=== PATIENT | male | born 1980 | race Caucasian/White ===

== ENCOUNTER 2022-05-26 13:46 | Emergency (ER) | payer SELFPAY ==
[2022-05-26 14:01] VITALS: BP 198/104; PULSE 78; RESP 20; TEMP 36.6; O2SAT 99; BMI 30.9
--- NOTE | 2022-05-26 14:17 | DI.RAD.S_ITS ---
PROCEDURE: XR CHEST 1V INDICATIONS: chest pain TECHNIQUE: One view of the chest was acquired. COMPARISON: None. FINDINGS: Surgical changes and devices: None. Lungs and pleura: Lungs are clear. No pleural effusions or pneumothorax. Mediastinum: Mediastinal contours appear normal. Heart size is normal. Bones and chest wall: No suspicious bony lesions. Overlying soft tissues appear unremarkable. IMPRESSION: No acute cardiopulmonary pathology. Dictated by: Sunday Cannon M.D. on 05/26/2022 at 14:33 Approved by: Sunday Cannon M.D. on 05/26/2022 at 14:33
[2022-05-26 14:33] VITALS: O2SAT 94
--- NOTE | 2022-05-26 14:33 | ED.CHESTPAIN ---
HPI - Chest Pain <Rodger Palomo PA-C - Last Filed: 05/26/22 18:53> General Chief Complaint: Chest Pain Stated Complaint: chest pains Time Seen by Provider: 05/26/22 14:12 Source: patient Limitations: no limitations History of Present Illness HPI narrative: This is a 42-year-old male reporting 2 weeks of intermittent chest pain with heart palpitations as well as mild shortness of breath. He did not have any injury area. Pain does not get worse with activity. Does not get worse with changes of position either. Patient states that he is no medical history as he ?does not go to the doctor?. Denies any fevers, chills, nausea, vomiting, abdominal pain, or any other concerning signs or symptoms. Related Data Home Medications Medication Instructions Recorded Confirmed esomeprazole magnesium 20 mg 20 mg PO DAILY 05/26/22 05/26/22 capsule,delayed release (Nexium) Previous Rx's Medication Instructions Recorded metoprolol succinate 25 mg capsule 25 mg PO BID 14 days #28 ea 05/26/22 sprinkle, ext. release 24 hr Allergies Allergy/AdvReac Type Severity Reaction Status Date / Time No Known Drug Allergies Allergy Verified 05/26/22 14:05 Review of Systems <Rodger Palomo PA-C - Last Filed: 05/26/22 18:53> Review of Systems Narrative: GENERAL: Denies chills, fatigue, malaise, fever, sweats. HEENT: Denies sinus pain, ear pain, sore throat, difficulty swallowing, dizziness. RESPIRATORY: Reports shortness of breath, denies cough, wheezing, hemoptysis, sputum. CARDIOVASCULAR: Reports chest pain, palpitations, denies orthopnea, edema, GASTROINTESTINAL: Denies nausea, vomiting, abdominal pain, diarrhea, constipation, melena. : Denies dysuria, frequency, incontinence, hematuria, urinary retention. MUSCULOSKELETAL: denies weakness, joint pain, or bony pain SKIN: Denies rash, skin lesions, or other NEUROLOGIC: Denies weakness, headache, numbness, change in speech, confusion, seizures, incoordination. PSYCHIATRIC: No concerning psychosocial issues. 12 point review of systems is negative except for those stated above Patient History <Rodger Palomo PA-C - Last Filed: 05/26/22 18:53> Social History Smoking Status: Current every day smoker Smoking Status: Current every day smoker tobacco type: vaping alcohol intake frequency: a few times a week Substance Use Type: marijuana Exam <JUAN Avila Last Filed: 05/26/22 18:53> Narrative Exam Narrative: GENERAL: Well-developed patient, in mild distress. HEAD: Atraumatic. Normocephalic. EYES: Pupils equal round and reactive. Extraocular motions intact. No scleral icterus. No injection or drainage. ENT: Nose without bleeding, purulent drainage. Throat without erythema, tonsillar hypertrophy or exudate. Airway patent. NECK: Trachea midline. Non tender CARDIOVASCULAR: Regular rate and rhythm without murmurs, gallops, or rubs. RESPIRATORY: Clear to auscultation. Breath sounds equal bilaterally. No wheezes, rales, or rhonchi. GASTROINTESTINAL: Abdomen soft, non-tender, nondistended. EXTREMITIES: No edema or joint tenderness. BACK: Nontender without deformity or crepitance. No flank tenderness. NEURO: AOx3. SKIN: No rash or erythema of visible areas Initial Vital Signs Initial Vital Signs: Vital Signs Temperature 97.9 F 05/26/22 14:01 Pulse Rate 78 05/26/22 14:01 Respiratory Rate 20 05/26/22 14:01 Blood Pressure 198/104 H 05/26/22 14:01 Pulse Oximetry 99 05/26/22 14:01 Oxygen Delivery Method 05/26/22 14:01 <Katy Odom DO - Last Filed: 05/27/22 07:16> Initial Vital Signs Initial Vital Signs: Vital Signs Temperature 97.9 F 05/26/22 14:01 Pulse Rate 78 05/26/22 14:01 Respiratory Rate 20 05/26/22 14:01 Blood Pressure 198/104 H 05/26/22 14:01 Pulse Oximetry 99 05/26/22 14:01 Oxygen Delivery Method 05/26/22 14:01 Course <Rodger Palomo PA-C - Last Filed: 05/26/22 18:53> Orders Ordered: ED Orders 05/26/22 14:07 EKG-12 Lead Routine 05/26/22 14:15 Complete Blood Count AUTO DIFF Stat Comprehensive Metabolic Panel Stat Lipase Stat Magnesium Stat Troponin & CK Cardiac Panel Stat 05/26/22 14:17 XR chest 1V Stat Vital Signs Vital signs: Vital Signs - 8 hr 05/26/22 14:01 05/26/22 14:33 05/26/22 14:34 Temperature 97.9 F Pulse Rate 78 Respiratory Rate 20 Blood Pressure 198/104 H 179/107 H Pulse Oximetry 99 94 Oxygen Delivery Method Room Air 05/26/22 14:34 05/26/22 15:00 05/26/22 15:00 Temperature Pulse Rate 92 H 81 Respiratory Rate 17 16 Blood Pressure 158/95 H Pulse Oximetry 97 97 Oxygen Delivery Method 05/26/22 15:30 05/26/22 15:30 05/26/22 16:00 Temperature Pulse Rate 80 Respiratory Rate 18 Blood Pressure 158/98 H 156/109 H Pulse Oximetry 94 Oxygen Delivery Method 05/26/22 16:00 Temperature Pulse Rate 65 Respiratory Rate 22 Blood Pressure Pulse Oximetry 94 Oxygen Delivery Method <Katy Odom DO - Last Filed: 05/27/22 07:16> Orders Ordered: ED Orders 05/26/22 14:07 EKG-12 Lead Routine 05/26/22 14:15 Complete Blood Count AUTO DIFF Stat Comprehensive Metabolic Panel Stat Lipase Stat Magnesium Stat Troponin & CK Cardiac Panel Stat 05/26/22 14:17 XR chest 1V Stat Vital Signs Vital signs: Vital Signs - 8 hr 05/26/22 14:01 05/26/22 14:33 05/26/22 14:34 Temperature 97.9 F Pulse Rate 78 Respiratory Rate 20 Blood Pressure 198/104 H 179/107 H Pulse Oximetry 99 94 Oxygen Delivery Method Room Air 05/26/22 14:34 05/26/22 15:00 05/26/22 15:00 Temperature Pulse Rate 92 H 81 Respiratory Rate 17 16 Blood Pressure 158/95 H Pulse Oximetry 97 97 Oxygen Delivery Method 05/26/22 15:30 05/26/22 15:30 05/26/22 16:00 Temperature Pulse Rate 80 Respiratory Rate 18 Blood Pressure 158/98 H 156/109 H Pulse Oximetry 94 Oxygen Delivery Method 05/26/22 16:00 Temperature Pulse Rate 65 Respiratory Rate 22 Blood Pressure Pulse Oximetry 94 Oxygen Delivery Method MDM - Chest Pain <Rodger Palomo PA-C - Last Filed: 05/26/22 18:53> Lab Data Result diagrams: 05/26/22 14:15 05/26/22 14:15 Labs: Lab Results 05/26/22 05/26/22 Range/Units 14:15 14:15 WBC 7.2 (4.5-11.0) X10^3/uL RBC 5.27 (4.5-5.9) X10^6/uL Hgb 15.6 (13.5-17.5) g/dL Hct 45.5 (41-53) % MCV 86.5 (80-100) fL MCH 29.6 (26-34) PG MCHC 34.2 (30-36) % RDW 13.7 (11.6-14.8) % Plt Count 191 (150-400) X10^3/uL Neut % (Auto) 65.2 (50-75) % Lymph % (Auto) 27.1 (25-40) % [place] % (Auto) 6.4 (3-14) % Eos % (Auto) 0.7 L (2-4) % Baso % (Auto) 0.6 (0-2) % Neut # (Auto) 4700 (2373-9262) /uL Lymph # (Auto) 2000 (4114-4485) /uL [place] # (Auto) 500 (0-900) /uL Eos # (Auto) 0 (0-450) /uL Baso # (Auto) 0 (0-100) /uL Sodium 141 (137-145) mmol/L Potassium 3.8 (3.4-5.1) mmol/L Chloride 100 (98-107) mmol/L Carbon Dioxide 30 (22-32) mmol/L BUN 13 (9-20) mg/dL Creatinine 0.85 (0.66-1.25) mg/dL Estimated GFR > 60 (>60) mL/min BUN/Creatinine Ratio 15.3 (6-22) Glucose 147 H (70-100) mg/dL Calcium 8.9 (8.4-10.2) mg/dL Magnesium 1.6 (1.6-2.3) mg/dL Total Bilirubin 0.9 (0.2-1.3) mg/dL AST 55 (17-59) IU/L ALT 65 H (<50) IU/L Alkaline Phosphatase 80 (38-126) U/L Total Creatine Kinase 228 H (55-170) U/L CK-MB (CK-2) 2.23 (<2.37) ng/mL CK-MB (CK-2) Rel Index 1.0 L (1.5-5.0) % Troponin I < 0.012 (0.01-0.034) ng/mL Total Protein 8.2 (6.3-8.2) g/dL Albumin 4.5 (3.5-5.0) g/dL Globulin 3.7 (1.7-4.1) g/dL Albumin/Globulin Ratio 1.2 (1.0-2.8) Lipase 224 (23-300) U/L Imaging Data Chest x-ray: Radiologist's Impression: [address] [address] XRay Report Signed Patient: Andrés Bailey MR#: [id number] : 1980 Acct:[id number] Age/Sex: 42 / M Date of Service: 05/26/22 Loc: ED Accession Number: [id number] ?? Procedure: XR chest 1V Ordering Provider: Katy Odom D.O. PROCEDURE:? XR CHEST 1V ? INDICATIONS:? chest pain ? TECHNIQUE:? One view of the chest was acquired.? ? COMPARISON:? None. ? FINDINGS:? ? Surgical changes and devices:? None.? ? Lungs and pleura:? Lungs are clear.? No pleural effusions or pneumothorax.? ? Mediastinum:? Mediastinal contours appear normal.? Heart size is normal.? ? Bones and chest wall:? No suspicious bony lesions.? Overlying soft tissues appear unremarkable.? ? IMPRESSION:? No acute cardiopulmonary pathology. ? ? Dictated by: Sunday Cannon M.D. on 05/26/2022 at 14:33 ? ? Approved by: Sunday Cannon M.D. on 05/26/2022 at 14:33 ? ECG Data Interpretation: EKG is normal sinus rhythm rate 84 and free of any signs of ischemia or ectopy. No ST segmental elevation or depression. No T wave inversions. Frequent PVCs as well as a right bundle-branch block MDM Narrative Medical decision making narrative: This is a 42-year-old male presenting due to 2 weeks of intermittent chest pain with palpitations. Troponin within normal limits and EKG showed no evidence of ischemia. EKG did show frequent PVCs as well as a right bundle-branch block. Chest x-ray unremarkable as well as other routine lab work. Due to patient being symptomatic will prescribe a short dose of metoprolol until patient is able to follow-up with cardiology for possible Holter monitor. Case discussed with my attending physician, Dr. Odom. <Katy Odom, - Last Filed: 05/27/22 07:16> Lab Data Labs: Lab Results 05/26/22 05/26/22 Range/Units 14:15 14:15 WBC 7.2 (4.5-11.0) X10^3/uL RBC 5.27 (4.5-5.9) X10^6/uL Hgb 15.6 (13.5-17.5) g/dL Hct 45.5 (41-53) % MCV 86.5 (80-100) fL MCH 29.6 (26-34) PG MCHC 34.2 (30-36) % RDW 13.7 (11.6-14.8) % Plt Count 191 (150-400) X10^3/uL Neut % (Auto) 65.2 (50-75) % Lymph % (Auto) 27.1 (25-40) % [place] % (Auto) 6.4 (3-14) % Eos % (Auto) 0.7 L (2-4) % Baso % (Auto) 0.6 (0-2) % Neut # (Auto) 4700 (7611-6970) /uL Lymph # (Auto) 2000 (2858-3422) /uL [place] # (Auto) 500 (0-900) /uL Eos # (Auto) 0 (0-450) /uL Baso # (Auto) 0 (0-100) /uL Sodium 141 (137-145) mmol/L Potassium 3.8 (3.4-5.1) mmol/L Chloride 100 (98-107) mmol/L Carbon Dioxide 30 (22-32) mmol/L BUN 13 (9-20) mg/dL Creatinine 0.85 (0.66-1.25) mg/dL Estimated GFR > 60 (>60) mL/min BUN/Creatinine Ratio 15.3 (6-22) Glucose 147 H (70-100) mg/dL Calcium 8.9 (8.4-10.2) mg/dL Magnesium 1.6 (1.6-2.3) mg/dL Total Bilirubin 0.9 (0.2-1.3) mg/dL AST 55 (17-59) IU/L ALT 65 H (<50) IU/L Alkaline Phosphatase 80 (38-126) U/L Total Creatine Kinase 228 H (55-170) U/L CK-MB (CK-2) 2.23 (<2.37) ng/mL CK-MB (CK-2) Rel Index 1.0 L (1.5-5.0) % Troponin I < 0.012 (0.01-0.034) ng/mL Total Protein 8.2 (6.3-8.2) g/dL Albumin 4.5 (3.5-5.0) g/dL Globulin 3.7 (1.7-4.1) g/dL Albumin/Globulin Ratio 1.2 (1.0-2.8) Lipase 224 (23-300) U/L ECG Data Interpretation: EKG is normal sinus rhythm rate 84 and free of any signs of ischemia or ectopy. No ST segmental elevation or depression. No T wave inversions. Frequent PVCs as well as a right bundle-branch block Lei-sinus rhythm rate 84 [place] interval 156 QRS is 156 QTC 489 frequent PVCs right bundle-branch block noted no priors to compare no ischemic changes Discharge Plan Departure Patient Disposition: Home Clinical Impression: Atypical chest pain Activity Restrictions/Additional Instructions: Thank you for coming to the [facility] Emergency Department today. The EKG and lab work showed that you are not having an acute heart attack but the EKG did show some slight abnormalities in your heart beat. Please take these heart medications until you are able follow-up with Dr. Espinosa for further investigation of these heart be abnormalities. Your chest x-ray was also unremarkable. I hope you feel better soon. Prescriptions: New metoprolol succinate 25 mg capsule,sprinkle,ER 24hr 25 mg PO BID 14 Days Qty: 28 0RF No Action esomeprazole magnesium [Nexium] 20 mg Capsule,Delayed Release(Dr/Ec) 20 mg PO DAILY Referrals: Antony Espinosa MD [Physician] - (f/u ED visit + EKG w/ frequent PVCs and RBBB ) Visit Report Forms: Patient Portal/API <Katy Odom DO - Last Filed: 05/27/22 07:16> Cosign ED Attending Cosignature Attestation: I was immediately available in the department for consultation. Documentation has been reviewed. I agree with assessment and plan. Patient is noted to have frequent PVCs on the monitor and is symptomatic. A trial of beta-shell upper
[2022-05-26 14:34] VITALS: BP 179/107; PULSE 92; RESP 17; O2SAT 97
[2022-05-26 14:37] LABS: Add Manual Diff / Slide Review NO; Basophils Absolute Auto 0 /uL (0-100); Basophils Percent Auto 0.6 % (0-2); Eosinophils Absolute Auto 0 /uL (0-450); Eosinophils Percent Auto 0.7 % (2-4); Hematocrit 45.5 % (41-53); Hemoglobin 15.6 g/dL (13.5-17.5); Lymphocytes Absolute Auto 2000 /uL (1100-4500); Lymphocytes Percent Auto 27.1 % (25-40); Mean Corpuscular HGB Conc 34.2 % (30-36); Mean Corpuscular Hemoglobin 29.6 PG (26-34); Mean Corpuscular Volume 86.5 fL (80-100); Monocytes Absolute Auto 500 /uL (0-900); Monocytes Percent Auto 6.4 % (3-14); Neutrophils Absolute Auto 4700 /uL (1500-7000); Neutrophils Percent Auto 65.2 % (50-75); Platelet Count 191 X10^3/uL (150-400); Red Blood Cell Count 5.27 X10^6/uL (4.5-5.9); Red Cell Distribution Width 13.7 % (11.6-14.8); White Blood Cell Count 7.2 X10^3/uL (4.5-11.0)
[2022-05-26 15:00] VITALS: BP 158/95; PULSE 81; RESP 16; O2SAT 97
[2022-05-26 15:17] LABS: Alanine Aminotransferase 65 IU/L (<50); Albumin 4.5 g/dL (3.5-5.0); Albumin Globulin Ratio 1.2 (1.0-2.8); Alkaline Phosphatase 80 U/L (38-126); Aspartate Aminotransferase 55 IU/L (17-59); BUN Creatinine Ratio 15.3 (6-22); Bilirubin Total 0.9 mg/dL (0.2-1.3); Blood Urea Nitrogen 13 mg/dL (9-20); Calcium 8.9 mg/dL (8.4-10.2); Carbon Dioxide 30 mmol/L (22-32); Chloride 100 mmol/L (98-107); Creatine Kinase 228 U/L (55-170); Estimated Glomerular Filt Rate > 60 mL/min (>60); Globulin 3.7 g/dL (1.7-4.1); Glucose 147 mg/dL (70-100); HEMOLYSIS < 15 (0-50); Lipase 224 U/L (23-300); Magnesium 1.6 mg/dL (1.6-2.3); Potassium 3.8 mmol/L (3.4-5.1); Sodium 141 mmol/L (137-145); Total Protein 8.2 g/dL (6.3-8.2)
[2022-05-26 15:29] LABS: Troponin I < 0.012 ng/mL (0.01-0.034)
[2022-05-26 15:30] VITALS: BP 158/98; PULSE 80; RESP 18; O2SAT 94
[2022-05-26 15:33] LABS: Creatine Kinase MB 2.23 ng/mL (<2.37)
[2022-05-26 16:00] VITALS: BP 156/109; PULSE 65; RESP 22; O2SAT 94
== END 2022-05-26 16:29 | disposition home or self-care (01) ==
PROVIDERS: Emergency Medicine; Emergency Provider Physician Assistant Medical
DX: R07.89 Other chest pain (principal); R00.2 Palpitations
CPT/HCPCS: 36415; 71045; 80053; 82550; 82553; 83690; 83735; 84484; 85025; 93005; 99283; 99284

== ENCOUNTER 2022-10-06 12:34 | Emergency (ER) | payer OTHER, MEDICAID, SELFPAY ==
[2022-10-06] VITALS (26 sets, daily range): BP systolic 129–181; BP diastolic 73–131; PULSE 63–113; RESP 11–23; TEMP 35.7–36.6; O2SAT 91–98
--- NOTE | 2022-10-06 12:35 | DI.CT.S_ITS ---
PROCEDURE: CT STROKE INDICATIONS: left sided weakness TECHNIQUE: Noncontrast 4.5 mm thick angled axial sections acquired from the foramen magnum to the vertex, with coronal reformats. For radiation dose reduction, the following was used: automated exposure control, adjustment of mA and/or kV according to patient size. COMPARISON: None. FINDINGS: Image quality: Excellent. CSF spaces: Basal cisterns are patent. No extra-axial fluid collections. Ventricles are normal in size and shape. Brain: No midline shift. No intracranial masses or hemorrhage. [place]-white matter interface is normal. Skull and face: Calvarium and visualized facial bones are intact, without suspicious lesions. Sinuses: Visualized sinuses and mastoids are clear. IMPRESSION: 1. No acute intracranial process. The above findings were discussed with Dr. Pallavi Gordillo on 10/06/2022 at 1:01 p.m. This study fulfills neurological imaging criteria for inclusion or exclusion of acute stroke therapies based on available published neurological imaging guidelines. Dictated by: Dulce Abbasi M.D. on 10/06/2022 at 13:01 Approved by: Dulce Abbasi M.D. on 10/06/2022 at 13:02
--- NOTE | 2022-10-06 12:35 | DI.CT.S_ITS ---
PROCEDURE: CT ANGIO HEAD AND NECK INDICATIONS: left sided weakness TECHNIQUE: After the administration of intravenous contrast, 1 mm thick sections acquired from the aortic arch through the [place]. Post-contrast 4.5 mm thick sections then re-acquired from the foramen magnum to the vertex. 3-dimensional fsvfzms-ziyveocsh-jgcbzqremw (MIP) and/or volume rendering reformats were acquired of the central intracranial vasculature and neck separately. For radiation dose reduction, the following was used: automated exposure control, adjustment of mA and/or kV according to patient size. COMPARISON: Merged With [facility], CT, CT STROKE, 10/06/2022, 12:32. FINDINGS: Image quality: Excellent. BRAIN: CSF spaces: Ventricles are normal in size and shape. Basal cisterns are patent. No extra-axial fluid collections. Brain: No midline shift. No intracranial bleeds or masses. [place]-white matter interface appears intact. Skull and face: Calvarium and facial bones appear intact, without suspicious lesions. Orbits appear normal. Sinuses: Sinuses and mastoids are clear. HEAD CT ANGIOGRAPHY: Anterior circulation: Intracranial internal carotid arteries are normal in size and flow. The flow within the paired anterior cerebral arteries is normal and symmetric. The flow within the middle cerebral arteries is normal and symmetric. The anterior communicating artery is seen. No aneurysms are seen. Posterior circulation: Mild left vertebral artery dominance. Visualized portions of the vertebral arteries demonstrate normal caliber, and join to form a normal appearing basilar artery. Flow within the posterior cerebral arteries is normal and symmetric. No aneurysms are seen. NECK CT ANGIOGRAPHY: Carotid system: The great vessels demonstrate a conventional anatomy as they arise from the aortic arch. The origins of the common carotid arteries appear patent. The common carotid arteries demonstrate normal caliber and courses. The bifurcation regions are both widely patent. The internal carotid arteries demonstrate normal calibers and courses. Posterior circulation: The origins of the vertebral arteries both appear widely patent. The more superior extracranial portions of both vertebral arteries also demonstrate normal courses and calibers. They join to form a normal appearing basilar artery. Soft tissues: Visualized neck soft tissues demonstrate no suspicious abnormalities. Bones: No suspicious bony lesions. Visualized cervical spine appears normally aligned. IMPRESSION: 1. No acute intracranial process. 2. No areas of hemodynamically significant stenosis, vascular occlusion or aneurysmal dilation within the anterior or posterior circulation. 3. No areas of hemodynamically significant stenosis, vascular occlusion or aneurysmal dilation within the neck vasculature. Any quantitative measurements of stenosis were performed using NASCET criteria. Dictated by: Dulce Abbasi M.D. on 10/06/2022 at 13:13 Approved by: Dulce Abbasi M.D. on 10/06/2022 at 13:14
[2022-10-06 13:01] LABS: Add Manual Diff / Slide Review NO; Basophils Absolute Auto 0 /uL (0-100); Basophils Percent Auto 0.5 % (0-2); Eosinophils Absolute Auto 0 /uL (0-450); Eosinophils Percent Auto 0.4 % (2-4); Hematocrit 44.7 % (41-53); Lymphocytes Absolute Auto 2000 /uL (1100-4500); Lymphocytes Percent Auto 40.2 % (25-40); Mean Corpuscular HGB Conc 33.5 % (30-36); Mean Corpuscular Hemoglobin 29.1 PG (26-34); Mean Corpuscular Volume 86.9 fL (80-100); Monocytes Absolute Auto 300 /uL (0-900); Monocytes Percent Auto 5.8 % (3-14); Neutrophils Absolute Auto 2700 /uL (1500-7000); Neutrophils Percent Auto 53.1 % (50-75); Platelet Count 211 X10^3/uL (150-400); Red Blood Cell Count 5.15 X10^6/uL (4.5-5.9); Red Cell Distribution Width 13.2 % (11.6-14.8); White Blood Cell Count 5.1 X10^3/uL (4.5-11.0)
--- NOTE | 2022-10-06 13:03 | ED.NEUROSD ---
HPI - Neuro Symptoms/Deficit General Chief Complaint: Neuro Symptoms/Deficit Stated Complaint: Stroke; L def, slurred speech, AMS Time Seen by Provider: 10/06/22 12:35 Source: patient Mode of arrival: EMS History of Present Illness HPI Narrative: This is a 42 year old male with history of GERD and ETOH use. Patient is on Nexium daily. He states he does drink alcohol most days. He did not he had anything to drink but he said he might have this morning. He states he does not normally have alcohol in the morning. Denies any prior surgeries. No known drug allergies. He states he smokes tobacco every day he vapes, states he does drink several times weekly. He uses marijuana he denies any injection or IV drugs. Patient states he is never had similar symptoms in the past. He describes some chest discomfort, he has quite a bit of pain where the Carter catheter was placed today. States his left side will not move. Initially he was unable to really articulate his words but this is improved during our evaluation. Patient does not recall the exact time but family last known normal was 11:30 a.m. with and a good friend named Sebastian and patient states this seems right. On Anticoagulants: No Related Data Home Medications Medication Instructions Recorded Confirmed esomeprazole magnesium 20 mg 20 mg PO DAILY 05/26/22 05/26/22 capsule,delayed release (Nexium) Allergies Allergy/AdvReac Type Severity Reaction Status Date / Time No Known Drug Allergies Allergy Verified 05/26/22 14:05 Review of Systems Review of Systems ROS Unobtainable: All systems reviewed & are unremarkable except as noted in HPI and below Hematologic/Lymphatic On Anticoagulants: No Patient History Social History Smoking Status: Current every day smoker Smoking Status: Current every day smoker tobacco type: vaping alcohol intake frequency: a few times a week Substance Use Type: marijuana Exam Narrative Exam Narrative: GEN: well nourished, well appearing male, alert and oriented, patient appears to be in moderate distress. HEENT: Atraumatic, pupils are equal round reactive to light, extraocular movements are intact, nares are clear.. Throat is clear without any exudates, erythema, tonsillar enlargement or uvular deviation, patient has clear droop of the left lower face with cheek puff and smile HEART: Regular rate and rhythm without murmur, clicks, rubs. No carotid bruits, pulses are equal in upper and lower extremities LUNGS:Lungs clear to auscultation, no wheezes, rales, crackles, chest moves symmetrically ABD:bowel sounds normal, soft, non-tender, no guarding, rebound, rigidity, no masses noted, no hepatosplenomegaly, no bruit or pulsatile mass. :No CVA tenderness, Carter catheter was placed in the department. Normal male genitalia. MSCL: Non-tender, no muscle atrophy, patient has normal straight leg on the right with arm and leg. Patient is unable to really lift the left arm off the bed he does attempt, patient's left leg has minimal to no movement with attempt. NEURO:CN 2-12 intact, sensation normal, patient unable to perform finger-nose or heel-gramajo with the left arm and leg. He can not feel sensation of touch in the left side of his leg has some sensation in the left arm but it does feel different. He feels that the cheeks are the same. Patient was quite dysarthric and aphasic initially there has been some improvement this become more articulate but does have to concentrate when performing NIH. Initial Vital Signs Initial Vital Signs: Vital Signs Temperature 96.3 F L 10/06/22 12:35 Pulse Rate 113 H 10/06/22 12:35 Respiratory Rate 18 10/06/22 12:35 Blood Pressure 175/97 H 10/06/22 12:35 Pulse Oximetry 94 10/06/22 12:35 Oxygen Delivery Method Room Air 10/06/22 12:35 Scores NIH Stroke Scale Level of Conciousness: Alert, keenly responsive Ask month/age: Answers both questions correctly. Open/close eyes, close hand: Performs both tasks correctly Best gaze horizontal: Partial gaze palsy, can be overcome by finger tracking, head turning Visual vance: No visual loss Facial palsy: Partial paralysis, total or near total paralysis of lower face Left arm drift: No effort against gravity Right arm drift: No drift for full 10 sec Left leg drift: Some effort against gravity, cannot maintain, drifts down to bed Right leg drift: No drift for full 5 sec Limb ataxia: Present in two limbs Sensory on face/arms/legs: Normal, no sensory loss Best language: Severe aphasia, not much is understood, fragmented Dysarthria: Severe, unintelligible Extinction or inattention: No abnormality Total NIH Stroke scale score: 14 Course Orders Ordered: ED Orders 10/06/22 12:[address] angio head and neck Stat 10/06/22 12:50 COVID19 -Nasal RAPID Stat Complete Blood Count AUTO DIFF Stat Comprehensive Metabolic Panel Stat Ethanol (ETOH) Stat PTT Partial Thromboplastin Florencio Stat Prothrombin Time INR Stat Troponin & CK Cardiac Panel Stat 10/06/22 12:57 Urinalysis and Microscopic Stat Urine Drug Screen, Rapid Stat Discontinued Medications Sodium Chloride (Normal Saline 0.9%) 1,000 mls @ 150 mls/hr IV CONT LIS Last Infusion: 10/06/22 16:23 Dose: 150 mls/hr Documented By: Admin: 10/06/22 13:47 Dose: 150 mls/hr Documented By: STEPHAN Alteplase, Recombinant (Activase) 9 mg in 9 mls @ 540 mls/hr IV NOW ONE Stop: 10/06/22 13:55 Last Infusion: 10/06/22 14:03 Dose: 0 mls/hr Documented By: Admin: 10/06/22 14:02 Dose: 540 mls/hr Documented By: STEPHAN Alteplase, Recombinant (Activase) 81 mg in 81 mls @ 81 mls/hr IV NOW ONE Stop: 10/06/22 14:53 Last Infusion: 10/06/22 15:12 Dose: 0 mls/hr Documented By: Admin: 10/06/22 14:02 Dose: 81 mls/hr Documented By: STEPHAN Labetalol HCl (Labetalol 20 Mg/4 Ml Syringe) 10 mg IV NOW ONE; Protocol Stop: 10/06/22 13:34 Last Admin: 10/06/22 13:38 Dose: 10 mg Documented By: STEPHAN Morphine Sulfate (Morphine 4 Mg/Ml Inj) 4 mg IV NOW ONE Stop: 10/06/22 14:23 Last Admin: 10/06/22 14:24 Dose: 4 mg Documented By: STEPHAN Tranexamic Acid (Tranexamic Acid 1,000 Mg Vial) 500 mg TOP NOW ONE Stop: 10/06/22 14:51 Last Admin: 10/06/22 14:54 Dose: 500 mg Documented By: STEPHAN Vital Signs Vital signs: Vital Signs - 8 hr 10/06/22 13:38 10/06/22 12:48 10/06/22 12:49 Temperature Pulse Rate 77 83 Respiratory Rate 23 Blood Pressure 170/131 H 175/97 H Pulse Oximetry 93 Oxygen Delivery Method Oxygen Flow Rate 10/06/22 13:00 10/06/22 13:01 10/06/22 13:01 Temperature 97.0 F L 97.0 F L Pulse Rate 85 86 Respiratory Rate 18 16 Blood Pressure 181/111 H Pulse Oximetry 97 97 Oxygen Delivery Method Room Air Oxygen Flow Rate 10/06/22 13:30 10/06/22 13:32 10/06/22 13:32 Temperature 97.3 F L 97.3 F L Pulse Rate 81 91 H Respiratory Rate 13 17 Blood Pressure 170/131 H Pulse Oximetry Oxygen Delivery Method Oxygen Flow Rate 10/06/22 13:43 10/06/22 13:43 10/06/22 13:46 Temperature 97.3 F L 97.3 F L Pulse Rate 78 72 Respiratory Rate 11 L 21 Blood Pressure 148/82 H Pulse Oximetry 91 95 Oxygen Delivery Method Nasal Cannula Oxygen Flow Rate 2 10/06/22 13:46 10/06/22 13:51 10/06/22 13:51 Temperature 97.5 F L Pulse Rate 80 Respiratory Rate 16 Blood Pressure 155/93 H 173/98 H Pulse Oximetry 96 Oxygen Delivery Method Oxygen Flow Rate 10/06/22 13:56 10/06/22 13:56 10/06/22 14:00 Temperature 97.7 F Pulse Rate 71 Respiratory Rate 15 Blood Pressure 153/97 H 158/98 H Pulse Oximetry 96 Oxygen Delivery Method Oxygen Flow Rate 10/06/22 14:00 10/06/22 14:10 10/06/22 14:10 Temperature 97.7 F 97.7 F Pulse Rate 78 71 Respiratory Rate 17 14 Blood Pressure 149/95 H Pulse Oximetry 96 96 Oxygen Delivery Method Oxygen Flow Rate 10/06/22 14:15 10/06/22 14:15 10/06/22 14:20 Temperature 97.7 F 97.7 F Pulse Rate 69 75 Respiratory Rate 16 15 Blood Pressure 148/93 H Pulse Oximetry 97 96 Oxygen Delivery Method Oxygen Flow Rate 10/06/22 14:20 10/06/22 14:25 10/06/22 14:25 Temperature 97.7 F Pulse Rate 73 Respiratory Rate 18 Blood Pressure 142/89 H 152/86 H Pulse Oximetry 96 Oxygen Delivery Method Oxygen Flow Rate 10/06/22 14:30 10/06/22 14:30 10/06/22 14:35 Temperature 97.7 F 97.7 F Pulse Rate 71 70 Respiratory Rate 12 12 Blood Pressure 147/90 H Pulse Oximetry 96 97 Oxygen Delivery Method Oxygen Flow Rate 10/06/22 14:35 10/06/22 14:40 10/06/22 14:40 Temperature 97.9 F Pulse Rate 74 Respiratory Rate 14 Blood Pressure 144/91 H 142/89 H Pulse Oximetry 94 Oxygen Delivery Method Oxygen Flow Rate 10/06/22 14:50 10/06/22 14:50 10/06/22 15:00 Temperature 97.7 F Pulse Rate 67 Respiratory Rate 17 Blood Pressure 146/96 H 149/95 H Pulse Oximetry 98 Oxygen Delivery Method Oxygen Flow Rate 10/06/22 15:00 10/06/22 15:10 10/06/22 15:10 Temperature 97.7 F 97.7 F Pulse Rate 68 69 Respiratory Rate 15 18 Blood Pressure 131/73 Pulse Oximetry 96 93 Oxygen Delivery Method Nasal Cannula Nasal Cannula Oxygen Flow Rate 2 2 10/06/22 15:30 10/06/22 15:46 10/06/22 15:46 Temperature 97.5 F L Pulse Rate 71 68 Respiratory Rate 17 17 Blood Pressure 129/79 Pulse Oximetry 96 95 Oxygen Delivery Method Oxygen Flow Rate 10/06/22 16:00 10/06/22 16:00 Temperature Pulse Rate 63 Respiratory Rate 19 Blood Pressure 132/79 Pulse Oximetry 93 Oxygen Delivery Method Oxygen Flow Rate MDM - Neuro Symptoms/Deficit Lab Data 10/06/22 12:50 10/06/22 12:50 Labs: Lab Results 10/06/22 10/06/22 10/06/22 Range/Units 12:50 12:50 12:50 WBC 5.1 (4.5-11.0) X10^3/uL RBC 5.15 (4.5-5.9) X10^6/uL Hgb 15.0 (13.5-17.5) g/dL Hct 44.7 (41-53) % MCV 86.9 (80-100) fL MCH 29.1 (26-34) PG MCHC 33.5 (30-36) % RDW 13.2 (11.6-14.8) % Plt Count 211 (150-400) X10^3/uL Neut % (Auto) 53.1 (50-75) % Lymph % (Auto) 40.2 H (25-40) % [place] % (Auto) 5.8 (3-14) % Eos % (Auto) 0.4 L (2-4) % Baso % (Auto) 0.5 (0-2) % Neut # (Auto) 2700 (7816-6984) /uL Lymph # (Auto) 2000 (9343-7562) /uL [place] # (Auto) 300 (0-900) /uL Eos # (Auto) 0 (0-450) /uL Baso # (Auto) 0 (0-100) /uL PT 12.0 (10.1-12.7) SECONDS INR 1.0 (0.9-1.3) APTT 32 (26-36) SECONDS Sodium 141 (137-145) mmol/L Potassium 4.0 (3.4-5.1) mmol/L Chloride 102 (98-107) mmol/L Carbon Dioxide 28 (22-32) mmol/L BUN 10 (9-20) mg/dL Creatinine 0.81 (0.66-1.25) mg/dL Estimated GFR > 60 (>60) mL/min BUN/Creatinine Ratio 12.3 (6-22) Glucose 111 H (70-100) mg/dL Calcium 8.6 (8.4-10.2) mg/dL Total Bilirubin 0.5 (0.2-1.3) mg/dL AST 35 (17-59) IU/L ALT 45 (<50) IU/L Alkaline Phosphatase 70 (38-126) U/L Total Creatine Kinase 194 H (55-170) U/L CK-MB (CK-2) 1.64 (<2.37) ng/mL CK-MB (CK-2) Rel Index 0.8 L (1.5-5.0) % Troponin I < 0.012 (0.01-0.034) ng/mL Total Protein 8.1 (6.3-8.2) g/dL Albumin 4.6 (3.5-5.0) g/dL Globulin 3.5 (1.7-4.1) g/dL Albumin/Globulin Ratio 1.3 (1.0-2.8) Urine Color Urine Appearance Urine pH (4.5-8.0) Ur Specific [place] (1.000-1.035) Urine Protein (Negative) Urine Glucose (UA) (Negative) g/dL Urine Ketones (NEGATIVE) Urine Occult Blood (Negative) Urine Nitrate (Negative) Urine Bilirubin (NEGATIVE) Urine Urobilinogen (0.2) E.U./dL Ur Leukocyte Esterase (NEGATIVE) Urine RBC (0-5/HPF) Urine WBC (0-5/HPF) Urine Bacteria (None) Ur Culture Indicated? U Opiates 300ng/mL cut (Negative) Ur Oxycodone Screen (Negative) Urine Methadone Screen (Negative) Ur Barbiturates Screen (Negative) U Tricyclic Antidepress (Negative) Ur Phencyclidine Scrn (Negative) Ur Amphetamines Screen (Negative) U Methamphetamines Scrn (Negative) Ur MDMA Scrn (Ecstasy) (Negative) U Benzodiazepines Scrn (Negative) Urine Cocaine Screen (Negative) U Marijuana (THC) Screen (Negative) Ethyl Alcohol 265 H ( - 10) mg/dL SARS-CoV-2 (PCR) (Negative) 10/06/22 10/06/22 10/06/22 Range/Units 12:50 12:57 12:57 WBC (4.5-11.0) X10^3/uL RBC (4.5-5.9) X10^6/uL Hgb (13.5-17.5) g/dL Hct (41-53) % MCV (80-100) fL MCH (26-34) PG MCHC (30-36) % RDW (11.6-14.8) % Plt Count (150-400) X10^3/uL Neut % (Auto) (50-75) % Lymph % (Auto) (25-40) % [place] % (Auto) (3-14) % Eos % (Auto) (2-4) % Baso % (Auto) (0-2) % Neut # (Auto) (4353-9226) /uL Lymph # (Auto) (8626-2941) /uL [place] # (Auto) (0-900) /uL Eos # (Auto) (0-450) /uL Baso # (Auto) (0-100) /uL PT (10.1-12.7) SECONDS INR (0.9-1.3) APTT (26-36) SECONDS Sodium (137-145) mmol/L Potassium (3.4-5.1) mmol/L Chloride (98-107) mmol/L Carbon Dioxide (22-32) mmol/L BUN (9-20) mg/dL Creatinine (0.66-1.25) mg/dL Estimated GFR (>60) mL/min BUN/Creatinine Ratio (6-22) Glucose (70-100) mg/dL Calcium (8.4-10.2) mg/dL Total Bilirubin (0.2-1.3) mg/dL AST (17-59) IU/L ALT (<50) IU/L Alkaline Phosphatase (38-126) U/L Total Creatine Kinase (55-170) U/L CK-MB (CK-2) (<2.37) ng/mL CK-MB (CK-2) Rel Index (1.5-5.0) % Troponin I (0.01-0.034) ng/mL Total Protein (6.3-8.2) g/dL Albumin (3.5-5.0) g/dL Globulin (1.7-4.1) g/dL Albumin/Globulin Ratio (1.0-2.8) Urine Color Straw Urine Appearance Clear Urine pH 5.5 (4.5-8.0) Ur Specific [place] <=1.005 (1.000-1.035) Urine Protein Negative (Negative) Urine Glucose (UA) Negative (Negative) g/dL Urine Ketones Negative (NEGATIVE) Urine Occult Blood 2+ H (Negative) Urine Nitrate Negative (Negative) Urine Bilirubin Negative (NEGATIVE) Urine Urobilinogen 0.2 (0.2) E.U./dL Ur Leukocyte Esterase Negative (NEGATIVE) Urine RBC 5-10/hpf H (0-5/HPF) Urine WBC None seen (0-5/HPF) Urine Bacteria Few (2-10) H (None) Ur Culture Indicated? Cult not indicated U Opiates 300ng/mL cut Negative (Negative) Ur Oxycodone Screen Negative (Negative) Urine Methadone Screen Negative (Negative) Ur Barbiturates Screen Negative (Negative) U Tricyclic Antidepress Negative (Negative) Ur Phencyclidine Scrn Negative (Negative) Ur Amphetamines Screen Negative (Negative) U Methamphetamines Scrn Negative (Negative) Ur MDMA Scrn (Ecstasy) Negative (Negative) U Benzodiazepines Scrn Negative (Negative) Urine Cocaine Screen Negative (Negative) U Marijuana (THC) Screen Negative (Negative) Ethyl Alcohol ( - 10) mg/dL SARS-CoV-2 (PCR) Negative (Negative) Point of Care Testing Glucose POC [address] scan - head: Radiologist's Impression: [address] [address] [address] Scan Report Signed Patient: Andrés Bailey MR#: [id number] : 1980 Acct:[id number] Age/Sex: 42 / M Date of Service: 10/06/22 Loc: ED Accession Number: [id number] ?? Procedure: CT Stroke Ordering Provider: Pallavi Gordillo D.O. PROCEDURE:? CT STROKE ? INDICATIONS:? left sided weakness ? TECHNIQUE:? Noncontrast 4.5 mm thick angled axial sections acquired from the foramen magnum to the vertex, with coronal reformats.? For radiation dose reduction, the following was used:? automated exposure control, adjustment of mA and/or kV according to patient size.? ? COMPARISON:? None. ? FINDINGS:? Image quality:? Excellent.? ? CSF spaces:? Basal cisterns are patent.? No extra-axial fluid collections.? Ventricles are normal in size and shape.? ? Brain:? No midline shift.? No intracranial masses or hemorrhage.? [place]-white matter interface is normal.? ? Skull and face:? Calvarium and visualized facial bones are intact, without suspicious lesions.? ? Sinuses:? Visualized sinuses and mastoids are clear.? ? IMPRESSION:? ? 1. No acute intracranial process. ? The above findings were discussed with Dr. Pallavi Gordillo on 10/06/2022 at 1:01 p.m. ? This study fulfills neurological imaging criteria for inclusion or exclusion of acute stroke therapies based on available published neurological imaging guidelines.? ? ? Dictated by: Dulce Abbasi M.D. on 10/06/2022 at 13:01 ? ? Approved by: Dulce Abbasi M.D. on 10/06/2022 at 13:02?? CTA - brain/neck: Radiologist's Impression: Andrés Bailey??42??M??1980 ? Allergy/Adv: No Known Drug Allergies Close Head/Neck CTA (Signed) Dulce Abbasi - 10/06/[address] (Signed) Abbasi,Dulce - 10/06/22 Chest X-Ray (Signed) Sunday Cannon - 05/26/22 Launch?Image [address] [address] [address] Scan Report Signed Patient: Andrés Bailey MR#: [id number] : 1980 Acct:[id number] Age/Sex: 42 / M Date of Service: 10/06/22 Loc: ED Accession Number: [id number] ?? Procedure: CT angio head and neck Ordering Provider: Pallavi Gordillo D.O. PROCEDURE:? CT ANGIO HEAD AND NECK ? INDICATIONS:? left sided weakness ? TECHNIQUE:? After the administration of intravenous contrast, 1 mm thick sections acquired from the aortic arch through the [place] of [place].? Post-contrast 4.5 mm thick sections then re-acquired from the foramen magnum to the vertex.? 3-dimensional feyezqd-udqdeezwj-cvliqknutf (MIP) and/or volume rendering reformats were acquired of the central intracranial vasculature and neck separately. For radiation dose reduction, the following was used:? automated exposure control, adjustment of mA and/or kV according to patient size.? ? COMPARISON:? [facility], CT, CT STROKE, 10/06/2022, 12:32. ? FINDINGS:? Image quality:? Excellent.? ? BRAIN:? CSF spaces:? Ventricles are normal in size and shape.? Basal cisterns are patent.? No extra-axial fluid collections.? ? Brain:? No midline shift.? No intracranial bleeds or masses.? [place]-white matter interface appears intact.? ? Skull and face:? Calvarium and facial bones appear intact, without suspicious lesions.? Orbits appear normal.? ? Sinuses:? Sinuses and mastoids are clear.? ? HEAD CT ANGIOGRAPHY:? Anterior circulation:? Intracranial internal carotid arteries are normal in size and flow.? The flow within the paired anterior cerebral arteries is normal and symmetric.? The flow within the middle cerebral arteries is normal and symmetric.? The anterior communicating artery is seen.? No aneurysms are seen.? ? Posterior circulation:? Mild left vertebral artery dominance.? Visualized portions of the vertebral arteries demonstrate normal caliber, and join to form a normal appearing basilar artery.? Flow within the posterior cerebral arteries is normal and symmetric.? No aneurysms are seen.? ? NECK CT ANGIOGRAPHY:? Carotid system:? The great vessels demonstrate a conventional anatomy as they arise from the aortic arch.? The origins of the common carotid arteries appear patent.? The common carotid arteries demonstrate normal caliber and courses.? The bifurcation regions are both widely patent.? The internal carotid arteries demonstrate normal calibers and courses.? ? Posterior circulation:? The origins of the vertebral arteries both appear widely patent.? The more superior extracranial portions of both vertebral arteries also demonstrate normal courses and calibers.? They join to form a normal appearing basilar artery.? ? Soft tissues:? Visualized neck soft tissues demonstrate no suspicious abnormalities.? ? Bones:? No suspicious bony lesions.? Visualized cervical spine appears normally aligned.? IMPRESSION:? ? 1. No acute intracranial process. ? 2. No areas of hemodynamically significant stenosis, vascular occlusion or aneurysmal dilation within the anterior or posterior circulation.? ? 3. No areas of hemodynamically significant stenosis, vascular occlusion or aneurysmal dilation within the neck vasculature. ? Any quantitative measurements of stenosis were performed using NASCET criteria.? ? ? Dictated by: Dulce Abbasi M.D. on 10/06/2022 at 13:13 ? ? Approved by: Dulce Abbasi M.D. on 10/06/2022 at 13:14?? ECG Data Attestation: I personally reviewed and interpreted this ECG as follows: Prior ECG tracings: available for review Interpretation: Sinus rhythm right bundle-branch block. Rate of 90, IN 176 QRS of 176 QTC of 508. Patient has prior from 05/26/2022 appears similar has more PVCs on that 1. MDM Narrative Medical decision making narrative: This is a 42-year-old male who presents with last known normal 11:30 a.m., presents with left-sided deficit, slurred speech was significant weakness of the left upper and lower extremity, patient does follow commands he is interactive. He does note that he is had some alcohol today. Patient was quite hypertensive in the field not as hypertensive but diastolic has been elevated as well. Patient's initial head CT is negative, CT angio does not show acute hemodynamic change case was discussed with Dr. Chahal who met with the patient via Telestroke and after evaluation and discussion with an NIH of 11 slight improvement in speech but no other changes in terms of his strength or exam decision was made to give tPA. Patient diastolic was elevated just prior to this he was given a dose of labetalol significantly decreased his pressure and has maintained an appropriate level. Patient labs show CBC, CMP, troponin without any other clear cause, ETOH is elevated today at 256.. Patient has right bundle branch on EKG, patient has prior from 05/26/2022 which appears similar. Patient accepted for transfer to [facility] for neuro monitoring status post tPA. Patient was consented, consent criteria reviewed with Neurology in the family and patient as well as myself. Patient signed consent. Risks versus benefits were discussed. Patient started having some bleeding with in his mouth, bolus had not completed had about 15 minutes left. Patient swish and spit and suctioned out and appears to have gingival from several small locations nothing brisk sort of a slow ooze. I do not appreciate bleeding elsewhere. It is fairly mild. Has improved but not totally stopped after swishing and spitting. Gave 500 mg Tx a orally to swish and spit to see if this improved can given inhaled dose if needed. I spoke with Dr. Chahal again from Neurology and discussed if we should continue at this time she feels appropriate to continue with the drip but okay to stop if other changes are occurring or anything else makes us uncomfortable and agrees with plan to try oral TXA, swish and spit. This improved/not patient's bleeding there is some scant ooze. Patient has continued to be stable. No additional changes and patient left with EMS for transfer to [facility]. Critical Care Time Critical Care Time Attestation: The high probability of a clinically significant, sudden or life threatening deterioration of the [neuro] system(s) required my full and direct attention, intervention and personal management. The aggregate critical care time was [] minutes. This time is in addition to time spent performing reported procedures but includes the following: [x] Data Review and interpretation [x] Patient assessment and monitoring of vital signs [x] Documentation [x] Medication orders and management Discharge Plan Departure Patient Disposition: [facility] Clinical Impression: Cerebrovascular accident, Received intravenous tissue plasminogen activator (tPA) in emergency department, Bleeding gums Prescriptions: No Action esomeprazole magnesium [Nexium] 20 mg Capsule,Delayed Release(Dr/Ec) 20 mg PO DAILY Referrals: *[facility],ED* [Primary Care Provider] -
[2022-10-06 13:09] LABS: Appearance Urine UA CLEAR; Bilirubin Urine UA NEGATIVE (NEGATIVE); Glucose Urine UA NEGATIVE (Negative); Ketones Urine UA NEGATIVE (NEGATIVE); Leukocyte Esterase Urine UA NEGATIVE (NEGATIVE); Nitrite Urine UA NEGATIVE (Negative); Occult Blood Urine UA 2+ (Negative); Protein Urine UA NEGATIVE (Negative); Specific Gravity Urine UA <=1.005 (1.000-1.035); Urobilinogen Urine UA 0.2 E.U./dL (0.2); pH Urine UA 5.5 (4.5-8.0)
[2022-10-06 13:11] LABS: PTT Partial Thromboplastin Tim 32 SECONDS (26-36)
[2022-10-06 13:11] LABS: Color Urine UA Straw
[2022-10-06 13:14] LABS: Alanine Aminotransferase 45 IU/L (<50); Albumin 4.6 g/dL (3.5-5.0); Albumin Globulin Ratio 1.3 (1.0-2.8); Alkaline Phosphatase 70 U/L (38-126); Aspartate Aminotransferase 35 IU/L (17-59); BUN Creatinine Ratio 12.3 (6-22); Bilirubin Total 0.5 mg/dL (0.2-1.3); Blood Urea Nitrogen 10 mg/dL (9-20); Calcium 8.6 mg/dL (8.4-10.2); Carbon Dioxide 28 mmol/L (22-32); Chloride 102 mmol/L (98-107); Creatine Kinase 194 U/L (55-170); Estimated Glomerular Filt Rate > 60 mL/min (>60); Ethanol (ETOH) 265 mg/dL; Globulin 3.5 g/dL (1.7-4.1); Glucose 111 mg/dL (70-100); HEMOLYSIS < 15 (0-50); Sodium 141 mmol/L (137-145); Total Protein 8.1 g/dL (6.3-8.2)
[2022-10-06 13:20] LABS: COVID19 -Nasal RAPID Negative (Negative)
[2022-10-06 13:25] LABS: Bacteria Urine Few (2-10); Culture Indicated Urine Cult Not Indicated; RBC Urine 5-10/HPF (0-5/HPF); Ur Creatinine Normal (Normal); Ur Specific Gravity Normal (Normal); Urine Tetrahydrocannabinol Negative (Negative); Urine pH Normal (Normal); WBC Urine None Seen (0-5/HPF)
[2022-10-06 13:25] LABS: Troponin I < 0.012 ng/mL (0.01-0.034)
[2022-10-06 13:26] LABS: UR Morphine/Opiate cutoff 300 Negative (Negative); Urine Amphetamines Negative (Negative); Urine Barbiturates Negative (Negative); Urine Benzodiazepines Negative (Negative); Urine Cocaine Negative (Negative); Urine MDMA Negative (Negative); Urine Methadone Negative (Negative); Urine Methamphetamines Negative (Negative); Urine Oxycodone Negative (Negative); Urine Phencyclidine Negative (Negative); Urine Tricyclic Antidepressant Negative (Negative)
[2022-10-06 13:29] LABS: CKMB % Relative Index 0.8 % (1.5-5.0); Creatine Kinase MB 1.64 ng/mL (<2.37)
[2022-10-06] MEDS: LABETALOL 20 MG/4 ML SYRINGE 10 MG IV (13:38)
[2022-10-06] MEDS: SODIUM CHLORIDE 0.9% 1,000 ML 150 ML IV (13:47)
[2022-10-06] MEDS: ALTEPLASE 9 MG/9 ML VIAL 540 MG IV (14:02)
[2022-10-06] MEDS: ALTEPLASE 81 MG/81 ML VIAL IV (14:02)
[2022-10-06] MEDS: MORPHINE 4 MG/ML INJ IV (14:24)
[2022-10-06] MEDS: TRANEXAMIC ACID 1,000 MG VIAL 500 MG TOP (14:54)
--- NOTE | 2022-10-06 15:06 | PC.NURSE ---
During TPA administration, pt developed bleeding from his gum line, Dr. Gordillo and pharmacist made aware. soraida Gill at bedside, TPA still running per Dr. Gordillo
--- NOTE | 2022-10-06 15:40 | PC.NURSE ---
Shortly after TPA infusion finished, pt began to have increased sensation in left leg. Pt is able to wiggle left toes, which he was not able to do before TPA. Continuing to monitor pt.
--- NOTE | 2022-10-26 19:40 | ED.NEUROSD ---
HPI - Neuro Symptoms/Deficit General Chief Complaint: Neuro Symptoms/Deficit Stated Complaint: Stroke; L def, slurred speech, AMS Time Seen by Provider: 10/06/22 12:35 Source: patient Mode of arrival: EMS History of Present Illness On Anticoagulants: No Related Data Home Medications Medication Instructions Recorded Confirmed esomeprazole magnesium 20 mg 20 mg PO DAILY 05/26/22 05/26/22 capsule,delayed release (Nexium) Allergies Allergy/AdvReac Type Severity Reaction Status Date / Time No Known Drug Allergies Allergy Verified 05/26/22 14:05 Review of Systems Hematologic/Lymphatic On Anticoagulants: No Patient History Social History Smoking Status: Current every day smoker Smoking Status: Current every day smoker tobacco type: vaping alcohol intake frequency: a few times a week Substance Use Type: marijuana Exam Initial Vital Signs Initial Vital Signs: Vital Signs Temperature 96.3 F L 10/06/22 12:35 Pulse Rate 113 H 10/06/22 12:35 Respiratory Rate 18 10/06/22 12:35 Blood Pressure 175/97 H 10/06/22 12:35 Pulse Oximetry 94 10/06/22 12:35 Oxygen Delivery Method Room Air 10/06/22 12:35 Course Orders Ordered: Discontinued Medications Sodium Chloride (Normal Saline 0.9%) 1,000 mls @ 150 mls/hr IV CONT LIS Last Infusion: 10/06/22 16:23 Dose: 150 mls/hr Documented By: Admin: 10/06/22 13:47 Dose: 150 mls/hr Documented By: STEPHAN Alteplase, Recombinant (Activase) 9 mg in 9 mls @ 540 mls/hr IV NOW ONE Stop: 10/06/22 13:55 Last Infusion: 10/06/22 14:03 Dose: 0 mls/hr Documented By: Admin: 10/06/22 14:02 Dose: 540 mls/hr Documented By: STEPHAN Alteplase, Recombinant (Activase) 81 mg in 81 mls @ 81 mls/hr IV NOW ONE Stop: 10/06/22 14:53 Last Infusion: 10/06/22 15:12 Dose: 0 mls/hr Documented By: Admin: 10/06/22 14:02 Dose: 81 mls/hr Documented By: STEPHAN Labetalol HCl (Labetalol 20 Mg/4 Ml Syringe) 10 mg IV NOW ONE; Protocol Stop: 10/06/22 13:34 Last Admin: 10/06/22 13:38 Dose: 10 mg Documented By: STEPHAN Morphine Sulfate (Morphine 4 Mg/Ml Inj) 4 mg IV NOW ONE Stop: 10/06/22 14:23 Last Admin: 10/06/22 14:24 Dose: 4 mg Documented By: STEPHAN Tranexamic Acid (Tranexamic Acid 1,000 Mg Vial) 500 mg TOP NOW ONE Stop: 10/06/22 14:51 Last Admin: 10/06/22 14:54 Dose: 500 mg Documented By: STEPHAN MDM - Neuro Symptoms/Deficit Lab Data 10/06/22 12:50 10/06/22 12:50 Labs: Lab Results 10/06/22 10/06/22 10/06/22 Range/Units 12:50 12:50 12:50 WBC 5.1 (4.5-11.0) X10^3/uL RBC 5.15 (4.5-5.9) X10^6/uL Hgb 15.0 (13.5-17.5) g/dL Hct 44.7 (41-53) % MCV 86.9 (80-100) fL MCH 29.1 (26-34) PG MCHC 33.5 (30-36) % RDW 13.2 (11.6-14.8) % Plt Count 211 (150-400) X10^3/uL Neut % (Auto) 53.1 (50-75) % Lymph % (Auto) 40.2 H (25-40) % [place] % (Auto) 5.8 (3-14) % Eos % (Auto) 0.4 L (2-4) % Baso % (Auto) 0.5 (0-2) % Neut # (Auto) 2700 (2237-5794) /uL Lymph # (Auto) 2000 (1207-7827) /uL [place] # (Auto) 300 (0-900) /uL Eos # (Auto) 0 (0-450) /uL Baso # (Auto) 0 (0-100) /uL PT 12.0 (10.1-12.7) SECONDS INR 1.0 (0.9-1.3) APTT 32 (26-36) SECONDS Sodium 141 (137-145) mmol/L Potassium 4.0 (3.4-5.1) mmol/L Chloride 102 (98-107) mmol/L Carbon Dioxide 28 (22-32) mmol/L BUN 10 (9-20) mg/dL Creatinine 0.81 (0.66-1.25) mg/dL Estimated GFR > 60 (>60) mL/min BUN/Creatinine Ratio 12.3 (6-22) Glucose 111 H (70-100) mg/dL Calcium 8.6 (8.4-10.2) mg/dL Total Bilirubin 0.5 (0.2-1.3) mg/dL AST 35 (17-59) IU/L ALT 45 (<50) IU/L Alkaline Phosphatase 70 (38-126) U/L Total Creatine Kinase 194 H (55-170) U/L CK-MB (CK-2) 1.64 (<2.37) ng/mL CK-MB (CK-2) Rel Index 0.8 L (1.5-5.0) % Troponin I < 0.012 (0.01-0.034) ng/mL Total Protein 8.1 (6.3-8.2) g/dL Albumin 4.6 (3.5-5.0) g/dL Globulin 3.5 (1.7-4.1) g/dL Albumin/Globulin Ratio 1.3 (1.0-2.8) Urine Color Urine Appearance Urine pH (4.5-8.0) Ur Specific [place] (1.000-1.035) Urine Protein (Negative) Urine Glucose (UA) (Negative) g/dL Urine Ketones (NEGATIVE) Urine Occult Blood (Negative) Urine Nitrate (Negative) Urine Bilirubin (NEGATIVE) Urine Urobilinogen (0.2) E.U./dL Ur Leukocyte Esterase (NEGATIVE) Urine RBC (0-5/HPF) Urine WBC (0-5/HPF) Urine Bacteria (None) Ur Culture Indicated? U Opiates 300ng/mL cut (Negative) Ur Oxycodone Screen (Negative) Urine Methadone Screen (Negative) Ur Barbiturates Screen (Negative) U Tricyclic Antidepress (Negative) Ur Phencyclidine Scrn (Negative) Ur Amphetamines Screen (Negative) U Methamphetamines Scrn (Negative) Ur MDMA Scrn (Ecstasy) (Negative) U Benzodiazepines Scrn (Negative) Urine Cocaine Screen (Negative) U Marijuana (THC) Screen (Negative) Ethyl Alcohol 265 H ( - 10) mg/dL SARS-CoV-2 (PCR) (Negative) 10/06/22 10/06/22 10/06/22 Range/Units 12:50 12:57 12:57 WBC (4.5-11.0) X10^3/uL RBC (4.5-5.9) X10^6/uL Hgb (13.5-17.5) g/dL Hct (41-53) % MCV (80-100) fL MCH (26-34) PG MCHC (30-36) % RDW (11.6-14.8) % Plt Count (150-400) X10^3/uL Neut % (Auto) (50-75) % Lymph % (Auto) (25-40) % [place] % (Auto) (3-14) % Eos % (Auto) (2-4) % Baso % (Auto) (0-2) % Neut # (Auto) (8358-7846) /uL Lymph # (Auto) (6559-7520) /uL [place] # (Auto) (0-900) /uL Eos # (Auto) (0-450) /uL Baso # (Auto) (0-100) /uL PT (10.1-12.7) SECONDS INR (0.9-1.3) APTT (26-36) SECONDS Sodium (137-145) mmol/L Potassium (3.4-5.1) mmol/L Chloride (98-107) mmol/L Carbon Dioxide (22-32) mmol/L BUN (9-20) mg/dL Creatinine (0.66-1.25) mg/dL Estimated GFR (>60) mL/min BUN/Creatinine Ratio (6-22) Glucose (70-100) mg/dL Calcium (8.4-10.2) mg/dL Total Bilirubin (0.2-1.3) mg/dL AST (17-59) IU/L ALT (<50) IU/L Alkaline Phosphatase (38-126) U/L Total Creatine Kinase (55-170) U/L CK-MB (CK-2) (<2.37) ng/mL CK-MB (CK-2) Rel Index (1.5-5.0) % Troponin I (0.01-0.034) ng/mL Total Protein (6.3-8.2) g/dL Albumin (3.5-5.0) g/dL Globulin (1.7-4.1) g/dL Albumin/Globulin Ratio (1.0-2.8) Urine Color Straw Urine Appearance Clear Urine pH 5.5 (4.5-8.0) Ur Specific [place] <=1.005 (1.000-1.035) Urine Protein Negative (Negative) Urine Glucose (UA) Negative (Negative) g/dL Urine Ketones Negative (NEGATIVE) Urine Occult Blood 2+ H (Negative) Urine Nitrate Negative (Negative) Urine Bilirubin Negative (NEGATIVE) Urine Urobilinogen 0.2 (0.2) E.U./dL Ur Leukocyte Esterase Negative (NEGATIVE) Urine RBC 5-10/hpf H (0-5/HPF) Urine WBC None seen (0-5/HPF) Urine Bacteria Few (2-10) H (None) Ur Culture Indicated? Cult not indicated U Opiates 300ng/mL cut Negative (Negative) Ur Oxycodone Screen Negative (Negative) Urine Methadone Screen Negative (Negative) Ur Barbiturates Screen Negative (Negative) U Tricyclic Antidepress Negative (Negative) Ur Phencyclidine Scrn Negative (Negative) Ur Amphetamines Screen Negative (Negative) U Methamphetamines Scrn Negative (Negative) Ur MDMA Scrn (Ecstasy) Negative (Negative) U Benzodiazepines Scrn Negative (Negative) Urine Cocaine Screen Negative (Negative) U Marijuana (THC) Screen Negative (Negative) Ethyl Alcohol ( - 10) mg/dL SARS-CoV-2 (PCR) Negative (Negative) Point of Care Testing Glucose POC 112 Discharge Plan Departure Patient Disposition: [facility] Clinical Impression: Cerebrovascular accident, Received intravenous tissue plasminogen activator (tPA) in emergency department, Bleeding gums Prescriptions: No Action esomeprazole magnesium [Nexium] 20 mg Capsule,Delayed Release(Dr/Ec) 20 mg PO DAILY Referrals: *Temp,ED* [Primary Care Provider] -
== END 2022-10-06 16:24 | disposition short-term general hospital (02) ==
PROVIDERS: Emergency Provider Emergency Medicine
DX: I63.9 Cerebral infarction, unspecified (principal); K06.8 Other specified disorders of gingiva and edentulous alveolar ridge; I10 Essential (primary) hypertension; Z92.82 Status post administration of tPA (rtPA) in a different facility within the last 24 hours prior to admission to current facility; R29.714 NIHSS score 14; R07.9 Chest pain, unspecified; R47.81 Slurred speech; F10.129 Alcohol abuse with intoxication, unspecified; Y90.8 Blood alcohol level of 240 mg/100 ml or more; Z20.822 Contact with and (suspected) exposure to COVID-19
CPT/HCPCS: 70450; 70496; 70498; 80053; 80305; 80320; 81001; 82550; 82553; 82962; 84484; 85025; 85610; 85730; 87635; 93005; 93010; 96365; 96375; 99285; 99291; 99292; C9803; J2270; J2997; Q9967

== ENCOUNTER 2024-12-21 15:29 | Emergency (ER) | payer OTHER, SELFPAY ==
[2024-12-21] VITALS (7 sets, daily range): BP systolic 144–170; BP diastolic 74–94; PULSE 47–69; RESP 16; TEMP 36.5; O2SAT 95–98
--- NOTE | 2024-12-21 15:48 | DI.US.S_ITS ---
PROCEDURE: US SCROTUM INDICATIONS: left testicle pain TECHNIQUE: Real-time scanning was performed of the scrotum and testicles, with image documentation. Color and pulse Doppler interrogation was performed of both testicles. COMPARISON: None. FINDINGS: Right: Testicle is normal in size at 4.4 x 3.4 x 2.4 cm, and homogenous in echotexture. Single microcalcification is noted, nonspecific. Epididymis is normal in overall size and morphology. No hydrocele or varicoceles. Overlying scrotal skin is normal in thickness. Left: Testicle is normal in size at 3.9 x 3.3 x 2.4 cm, and homogeneous in echotexture. Epididymis is normal in overall size and morphology. 0.5 cm cyst is seen at the epididymal head. Small hydrocele with mobile debris. No varicocele. Overlying scrotal skin is normal in thickness. Doppler: Color and pulse Doppler demonstrate normal and symmetric arterial flow in both testicles. Reducible fat containing hernia at the left inguinal canal, which corresponds to the patient indicated area of pain. Abdominal wall defect measures 1.0 cm. IMPRESSION: 1. No signs of testicular torsion or epididymitis. 2. Small left hydrocele. 3. Reducible fat containing left inguinal hernia corresponds to the area of pain. Approved by: Heladio Guadalupe M.D. on 12/21/2024 at 17:03
[2024-12-21 16:07] LABS: Add Manual Diff / Slide Review NO; Basophils Absolute Auto 0 /uL (0-100); Basophils Percent Auto 0.4 % (0-2); Eosinophils Absolute Auto 0 /uL (0-450); Eosinophils Percent Auto 0.7 % (2-4); Hematocrit 44.6 % (41-53); Hemoglobin 15.1 g/dL (13.5-17.5); Lymphocytes Absolute Auto 1500 /uL (1100-4500); Lymphocytes Percent Auto 23.4 % (25-40); Mean Corpuscular HGB Conc 33.8 % (30-36); Mean Corpuscular Hemoglobin 28.1 PG (26-34); Mean Corpuscular Volume 83.2 fL (80-100); Monocytes Absolute Auto 500 /uL (0-900); Monocytes Percent Auto 8.1 % (3-14); Neutrophils Absolute Auto 4400 /uL (1500-7000); Neutrophils Percent Auto 67.4 % (50-75); Platelet Count 187 X10^3/uL (150-400); Red Blood Cell Count 5.36 X10^6/uL (4.5-5.9); Red Cell Distribution Width 13.8 % (11.6-14.8); White Blood Cell Count 6.5 X10^3/uL (4.5-11.0)
[2024-12-21 16:16] LABS: Alanine Aminotransferase 51 IU/L (<50); Albumin 4.7 g/dL (3.5-5.0); Albumin Globulin Ratio 1.4 (1.0-2.8); Alkaline Phosphatase 75 U/L (38-126); Aspartate Aminotransferase 58 IU/L (17-59); BUN Creatinine Ratio 23.5 (6-22); Bilirubin Total 0.8 mg/dL (0.2-1.3); Blood Urea Nitrogen 16 mg/dL (9-20); Calcium 9.3 mg/dL (8.4-10.2); Carbon Dioxide 25 mmol/L (22-32); Chloride 105 mmol/L (98-107); Estimated Glomerular Filt Rate > 60 mL/min (>60); Globulin 3.4 g/dL (1.7-4.1); Glucose 120 mg/dL (70-99); HEMOLYSIS 27 (0-50); Lipase 117 U/L (23-300); Potassium 3.8 mmol/L (3.4-5.1); Sodium 140 mmol/L (137-145); Total Protein 8.1 g/dL (6.3-8.2)
--- NOTE | 2024-12-21 18:42 | ED.ABDPAIN ---
HPI - Abdominal Pain General Chief Complaint: Abdominal Pain Stated Complaint: stomach pains left testicle pains Time Seen by Provider: 12/21/24 18:03 Source: patient Mode of arrival: Ambulatory History of Present Illness HPI narrative: 44-year-old male history of ETOH use GERD CVA hypertension dyslipidemia presents with left lower quadrant abdominal pain radiating to left testicle since November 28 after shoveling dirt and noticed a twinge in his left lower quadrant. For the past 2 3 weeks he has noticed intermittent min increased pain radiating to the left testicle but no nausea, vomiting, fever, chills, penile discharge, blood in the urine, or stool or back pain. He has not taken anything for this and nothing makes it better or worse. other than what is stated 14 point review of system is negative. Related Data Home Medications Medication Instructions Recorded Confirmed esomeprazole magnesium 20 mg 20 mg PO DAILY 05/26/22 05/26/22 capsule,delayed release (Nexium) Previous Rx's Medication Instructions Recorded hydrocodone 5 mg-acetaminophen 325 1 tab PO Q6H PRN pain #20 tabs 12/21/24 mg tablet Allergies Allergy/AdvReac Type Severity Reaction Status Date / Time No Known Drug Allergies Allergy Verified 05/26/22 14:05 Review of Systems Review of Systems ROS Unobtainable: All systems reviewed & are unremarkable except as noted in HPI and below Patient History Social History Smoking Status: Never smoker Smoking Status: Never smoker tobacco type: vaping alcohol intake frequency: a few times a week Exam Narrative Exam Narrative: GENERAL: [44] year old patient appears stated age. Well-developed patient, in mild distress. HEAD: Atraumatic. Normocephalic. EYES: Pupils equal round and reactive. Extraocular motions intact. No scleral icterus. No injection or drainage. ENT: Nose without bleeding, purulent drainage. Throat without erythema, tonsillar hypertrophy or exudate. Airway patent. NECK: Trachea midline. Non tender CARDIOVASCULAR: Regular rate and rhythm without murmurs, gallops, or rubs. RESPIRATORY: Clear to auscultation. Breath sounds equal bilaterally. No wheezes, rales, or rhonchi. GASTROINTESTINAL: Abdomen soft, LLQ TTP, nondistended. Reducible Fat containing inguinal hernia fully reducible EXTREMITIES: No edema or joint tenderness. BACK: Nontender without deformity or crepitance. No flank tenderness. NEURO: AOx3. SKIN: No rash or erythema of visible areas Initial Vital Signs Initial Vital Signs: Vital Signs Temperature 97.7 F 12/21/24 15:42 Pulse Rate 58 L 12/21/24 15:42 Respiratory Rate 16 12/21/24 15:42 Blood Pressure 170/94 H 12/21/24 15:42 Pulse Oximetry 97 12/21/24 15:42 Oxygen Delivery Method Room Air 12/21/24 15:42 Course Orders Ordered: ED Orders 12/21/24 15:48 US scrotum Stat 12/21/24 15:55 Complete Blood Count AUTO DIFF Stat Comprehensive Metabolic Panel Stat Lipase Stat Ondansetron HCl (Ondansetron 4 Mg/2 Ml Inj) 4 mg IV NOW PRN PRN Reason: Nausea And Vomiting Ondansetron HCl (Ondansetron 4 Mg Odt) 4 mg PO NOW PRN PRN Reason: Nausea And Vomiting Vital Signs Vital signs: Vital Signs - 8 hr 12/21/24 15:42 Temperature 97.7 F Pulse Rate 58 L Respiratory Rate 16 Blood Pressure 170/94 H Pulse Oximetry 97 Oxygen Delivery Method Room Air MDM - Abdominal Pain Lab Data 12/21/24 15:55 12/21/24 15:55 Labs: Lab Results 12/21/24 Range/Units 15:55 WBC 6.5 (4.5-11.0) X10^3/uL RBC 5.36 (4.5-5.9) X10^6/uL Hgb 15.1 (13.5-17.5) g/dL Hct 44.6 (41-53) % MCV 83.2 (80-100) fL MCH 28.1 (26-34) PG MCHC 33.8 (30-36) % RDW 13.8 (11.6-14.8) % Plt Count 187 (150-400) X10^3/uL Neut % (Auto) 67.4 (50-75) % Lymph % (Auto) 23.4 L (25-40) % [place] % (Auto) 8.1 (3-14) % Eos % (Auto) 0.7 L (2-4) % Baso % (Auto) 0.4 (0-2) % Neut # (Auto) 4400 (6395-6867) /uL Lymph # (Auto) 1500 (5452-2436) /uL [place] # (Auto) 500 (0-900) /uL Eos # (Auto) 0 (0-450) /uL Baso # (Auto) 0 (0-100) /uL Sodium 140 (137-145) mmol/L Potassium 3.8 (3.4-5.1) mmol/L Chloride 105 (98-107) mmol/L Carbon Dioxide 25 (22-32) mmol/L BUN 16 (9-20) mg/dL Creatinine 0.68 (0.66-1.25) mg/dL Estimated GFR > 60 (>60) mL/min BUN/Creatinine Ratio 23.5 H (6-22) Glucose 120 H (70-99) mg/dL Calcium 9.3 (8.4-10.2) mg/dL Total Bilirubin 0.8 (0.2-1.3) mg/dL AST 58 (17-59) IU/L ALT 51 H (<50) IU/L Alkaline Phosphatase 75 (38-126) U/L Total Protein 8.1 (6.3-8.2) g/dL Albumin 4.7 (3.5-5.0) g/dL Globulin 3.4 (1.7-4.1) g/dL Albumin/Globulin Ratio 1.4 (1.0-2.8) Lipase 117 (23-300) U/L Point of care testing: Urine Dip Bedside Urine Glucose Negative Bedside Urine Bilirubin - Negative Bedside Urine Ketone - Negative Urine Specific [place] 1.020 Bedside Urine Occult Blood - Negative Bedside Urine pH 6.0 Bedside Urine Protein +/- 15 Bedside Urine Urobilinogen - Negative Bedside Urine Nitrite - Negative Bedside Urine Leukocytes - Negative Esterase Imaging Data US - abdomen: Radiologist's Impression: [address] [address] Ultrasound Report Signed Patient: Andrés Bailey JR MR#: [id number] : 1980 Acct:[id number] Age/Sex: 44 / M Date of Service: 12/21/24 Loc: ED Accession Number: [id number] Procedure: US scrotum Ordering Provider: Kingsley Conde MD PROCEDURE: US SCROTUM INDICATIONS: left testicle pain TECHNIQUE: Real-time scanning was performed of the scrotum and testicles, with image documentation. Color and pulse Doppler interrogation was performed of both testicles. COMPARISON: None. FINDINGS: Right: Testicle is normal in size at 4.4 x 3.4 x 2.4 cm, and homogenous in echotexture. Single microcalcification is noted, nonspecific. Epididymis is normal in overall size and morphology. No hydrocele or varicoceles. Overlying scrotal skin is normal in thickness. Left: Testicle is normal in size at 3.9 x 3.3 x 2.4 cm, and homogeneous in echotexture. Epididymis is normal in overall size and morphology. 0.5 cm cyst is seen at the epididymal head. Small hydrocele with mobile debris. No varicocele. Overlying scrotal skin is normal in thickness. Doppler: Color and pulse Doppler demonstrate normal and symmetric arterial flow in both testicles. Reducible fat containing hernia at the left inguinal canal, which corresponds to the patient indicated area of pain. Abdominal wall defect measures 1.0 cm. IMPRESSION: 1. No signs of testicular torsion or epididymitis. 2. Small left hydrocele. 3. Reducible fat containing left inguinal hernia corresponds to the area of pain. MDM Narrative Medical decision making narrative: All lab work, vital signs, nurse triage note, medication list, and previous ER visits including imaging studies all reviewed. Ultrasound shows no signs of testicular torsion or epididymitis. Small left hydrocele and reducible fat containing left inguinal hernia. Patient given hydrocodone and ibuprofen here will be discharged on hydrocodone and to follow up with general surgery as outpatient for possible elective surgery. Differential diagnosis includes torsion, epididymitis, and hernia. Discharge Plan Departure Patient Disposition: Home Clinical Impression: Inguinal hernia Qualifiers: Obstruction and gangrene presence: without obstruction or gangrene Laterality: unilateral Recurrence: non-recurrent Qualified Code(s): K40.90 - Unilateral inguinal hernia, without obstruction or gangrene, not specified as recurrent Instructions: DI for Groin Hernia Activity Restrictions/Additional Instructions: Return with new or worsening symptoms. Take your medicines directed. Follow up with Dr. Heath general surgery for possible elective surgery for inguinal hernia Prescriptions: New hydrocodone-acetaminophen 5-325 mg tablet 1 tab PO Q6H PRN (Reason: pain) Qty: 20 0RF No Action esomeprazole magnesium [Nexium] 20 mg Capsule,Delayed Release(Dr/Ec) 20 mg PO DAILY Referrals: Yobany Heath MD [Physician] - 5-7 days Miscellaneous,MD Jacky [Primary Care Provider] - Stand Alone Forms: Patient Portal/API/Survey
== END 2024-12-21 19:28 | disposition home or self-care (01) ==
PROVIDERS: Emergency Medicine; Emergency Provider Family Medicine
DX: K40.90 Unilateral inguinal hernia, without obstruction or gangrene, not specified as recurrent (principal); N50.812 Left testicular pain
CPT/HCPCS: 36415; 76870; 80053; 81003; 83690; 85025; 99283; 99284